=== PATIENT | male | born 1985 | race American Indian/Alaskan Native ===

== ENCOUNTER 2019-08-11 08:43 | Emergency (ER) | payer SELFPAY ==
[2019-08-11 08:53] VITALS: BP 154/94
[2019-08-11] MEDS ORDERED: BUTALB/ACETAMINOPHEN/CAFFEINE TAB PO ONE (10:26)
[2019-08-11] MEDS ORDERED: methylPREDNISolone Sod Succinate 125 MG/2 ML INJ IV ONE (10:26)
[2019-08-11] MEDS ORDERED: METOCLOPRAMIDE 10 MG/2 ML INJ IV ONE (10:26)
[2019-08-11] MEDS ORDERED: SODIUM CHLORIDE 0.9% 1000 ML 1,000 ML IV ONE (10:27)
--- NOTE | 2019-08-11 10:45 | Emergency Department Report ---
HPI - General Chief Complaint: Headache Time Seen by Provider: 08/11/19 10:17 - HPI HPI: 34-year-old -[place] male presents to the emergency department with a complaint of a 8-9 day history of a headache and some neck pain. The neck and upper back pain/tension started first but then the patient began having the headaches with it as well. There is no fever, vision change, numbness, paresthesias or any neurological deficits. He has some nausea without vomiting. The patient takes BC powder and says that the intensity of the headache will go down "about 70% but does not go away completely." There is no restriction to range of motion of his head or neck. He says that he does have a history of migraine headaches but they do not usually last this long. No primary care physician. No other past medical history. The headache is currently 8 out of 10 in intensity. ED Past Medical Hx - Past Medical History Previous Medical History?: No - Surgical History Past Surgical History?: No - Social History Smoking Status: Current Every Day Smoker Substance Use Type: None ED Review of Systems ROS: Stated complaint: MIRGAINE FOR 8 DAYS Other details as noted in HPI Comment: All other systems reviewed and negative Constitutional: denies: chills, fever Eyes: denies: eye pain, vision change Respiratory: denies: shortness of breath Cardiovascular: denies: chest pain Gastrointestinal: denies: abdominal pain, vomiting Genitourinary: denies: dysuria, discharge Musculoskeletal: myalgia. denies: joint swelling Skin: denies: rash, lesions Neurological: headache. denies: weakness, numbness, paresthesias, confusion Physical Exam - Physical Exam Vital Signs: Vital Signs 08/11/19 08:52 Temperature 98.9 F Pulse Rate 93 H Respiratory 16 Rate Blood Pressure 154/94 O2 Sat by Pulse 93 Oximetry Physical Exam: GENERAL: The patient is well-developed well-nourished. HEENT: Normocephalic. Atraumatic. Patient has moist mucous membranes. EYES: Extraocular motions are intact. Pupils equal and reactive to light bilaterally. No nystagmus. NECK: Supple. Trachea is midline. No meningitic signs. No midline tenderness to palpation. There is some bilateral paraspinal tenderness that goes down to the bilateral trapezius muscle as well with tight musculature. CHEST/LUNGS: Clear to auscultation. There is no respiratory distress noted. HEART/CARDIOVASCULAR: Regular. There is no tachycardia. There is no murmur. ABDOMEN: Abdomen is soft, nontender. Patient has normal bowel sounds. SKIN:Skin is warm and dry. . NEURO: The patient is awake, alert, and oriented. The patient is cooperative. The patient has no focal neurologic deficits. Normal speech. Cranial nerves II through XII grossly intact. No facial asymmetry. MUSCULOSKELETAL: There is no tenderness or deformity. There is no limitation range of motion. There is no evidence of acute injury. ED Course Vital Signs 08/11/19 08:52 Temperature 98.9 F Pulse Rate 93 H Respiratory 16 Rate Blood Pressure 154/94 O2 Sat by Pulse 93 Oximetry ED Medical Decision Making - Medical Decision Making This patient presented with a 8-9 day headache. On examination there is no focal, motor or sensory deficits and his cranial nerves are intact. An IV was placed and he was given some Reglan, Solu-Medrol and a Fioricet, along with some gentle IV fluid. He was reevaluated about 45 minutes to one hour after the medications were given and the patient woke up and says he feels "perfect." He is currently 0 out of 10 and essentially asymptomatic. Vital signs stable throughout his ED course. The patient will be discharged home to follow up with a primary care physician and has been instructed to return with any worsening of his symptoms or any acute distress. - Differential Diagnosis tension headache, migraine, cluster headache, subarachnoid Critical Care Time: No Critical care attestation.: If time is entered above; I have spent that time in minutes in the direct care of this critically ill patient, excluding procedure time. ED Disposition Clinical Impression: Headache Qualifiers: Headache type: unspecified Headache chronicity pattern: unspecified pattern Intractability: not intractable Qualified Code(s): R51 - Headache Hypertension Qualifiers: Hypertension type: essential hypertension Qualified Code(s): I10 - Essential (primary) hypertension Disposition: - TO HOME OR SELFCARE Is pt being admited?: No Condition: Stable Instructions: Acute Headache (ED), Hypertension (ED) Additional Instructions: Please follow up with a primary care physician in the next few days. Return to the emergency department with any return of your symptoms or with any acute distress. Referrals: PRIMARY CARE, [Primary Care Provider] - 2-3 Days WILMER ALMARAZ MD [Staff Physician] - 2-3 Days [facility] [Outside] - 2-3 Days Time of Disposition: 11:54
== END 2019-08-11 12:27 | disposition home or self-care (01) ==
LOC: ED 08:43
DX: R51 Headache (principal); M54.2 Cervicalgia; M54.6 Pain in thoracic spine; I10 Essential (primary) hypertension; F17.200 Nicotine dependence, unspecified, uncomplicated
CPT/HCPCS: 96374; 96375; 99282; J2765; J2930; J7030

== ENCOUNTER 2022-03-02 22:19 | Emergency (ER) | payer SELFPAY ==
[2022-03-02 22:53] VITALS: BP 145/90
== END 2022-03-03 05:24 | disposition left against medical advice (07) ==
LOC: ED 22:19
DX: Z04.1 Encounter for examination and observation following transport accident (principal); Z53.21 Procedure and treatment not carried out due to patient leaving prior to being seen by health care provider; V87.7XXA Person injured in collision between other specified motor vehicles (traffic), initial encounter; Y93.89 Activity, other specified; Y92.488 Other paved roadways as the place of occurrence of the external cause; Y99.8 Other external cause status

== ENCOUNTER 2022-03-03 17:46 | Emergency (ER) | payer OTHER ==
[2022-03-03] MEDS ORDERED: HYDROcodone/ACETAMINOPHEN 5-325 MG TAB PO ONE (22:55)
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
--- NOTE | 2022-03-03 23:35 | Cat Scan Report ---
CT head without contrast INDICATION : Headache following injury TECHNIQUE: Axial imaging performed from the skull apex through the skull base without the use of con trast. All CT examinations performed at this facility utilize dose modulation, iterative reconstruct ion or weight-based dosing, when appropriate, to reduce radiation dose to as low as reasonably achiev able. COMPARISON: None FINDINGS: No acute intracranial hemorrhage or parenchymal abnormality. Ventricles are normal in si ze and appear symmetric. Soft tissues including the orbits appear normal. No acute osseous abnorm ality. Sinuses and mastoid air cells are clear. IMPRESSION: No acute abnormality. Signer Name: Allen Ferreira MD Signed: 03/03/2022 11:30 PM Workstation Name: [id number]
--- NOTE | 2022-03-04 00:06 | XRay Report ---
Left foreleg 2 views INDICATION: Left foreleg pain IMPRESSION: Posttraumatic deformity, chronic of the lateral malleolus. No acute fracture identified. Signer Name: Allen Ferreira MD Signed: 03/04/2022 12:01 AM Workstation Name: [email or web address]
--- NOTE | 2022-03-04 00:09 | XRay Report ---
Lumbar spine 2 views INDICATION: Low back pain IMPRESSION: No fracture or subluxation of the lumbar spine is identified. Signer Name: Allen Ferreira MD Signed: 03/04/2022 12:04 AM Workstation Name: [id number]
[2022-03-04 01:00] VITALS: BP 164/102
== END 2022-03-04 00:59 | disposition home or self-care (01) ==
LOC: ED 17:46
DX: S16.1XXA Strain of muscle, fascia and tendon at neck level, initial encounter (principal); S39.012A Strain of muscle, fascia and tendon of lower back, initial encounter; S80.812A Abrasion, left lower leg, initial encounter; V87.7XXA Person injured in collision between other specified motor vehicles (traffic), initial encounter; Y93.89 Activity, other specified; Y92.89 Other specified places as the place of occurrence of the external cause; Y99.8 Other external cause status
CPT/HCPCS: 70450; 72100; 72125; 99284